=== PATIENT | male | born 2000 | race Caucasian/White ===

== ENCOUNTER 2021-09-17 21:48 | Emergency (ER) | payer OTHER ==
[~2021-09-17] VITALS: Ht 172.7 cm; Wt 74.4 kg
[2021-09-17 21:54] VITALS: BP 111/72
--- NOTE | 2021-09-17 22:00 | NUR ---
Patient ambulated to bed 12. Addendum: 09/17/21 at 2201 by [email or web address] Patient ambulated to bed 11.
--- NOTE | 2021-09-17 22:12 | NUR ---
Dr. Rojas examining patient.
[2021-09-17] MEDS ORDERED: KETOROLAC 30 MG/ML VIAL IM ONE (22:15)
[2021-09-17] MEDS ORDERED: ONDANSETRON 4 MG ODT PO ONE (22:15)
--- NOTE | 2021-09-17 22:15 | NUR ---
RECEIVED IN BED 11 WITH C/O N/V X TODAY.C/O PMHx: DENIES
--- NOTE | 2021-09-18 | NUR ---
RESTING QUIETLY WITHOUT COMPLAINTS
[2021-09-18 00:31] VITALS: BP 92/46
[2021-09-18] MEDS ORDERED: NACL 0.9% 1,000 ML IV ONE (00:55)
[2021-09-18 01:07] LABS: BASOPHILS % (AUTO) 0.2 % (0.0-2.0); HEMATOCRIT 38.3 % (36-52); HEMOGLOBIN 12.8 g/dL (12.0-18.0); LYMPHOCYTES # (AUTO) 0.3 K/uL (2.0-11.5); LYMPHOCYTES % (AUTO) 2.2 % (20.5-51.1); MEAN CORPUSCULAR HEMOGLOBIN 30 pg (27-31); MEAN CORPUSCULAR HGB CONC 33 g/dL (33-37); MEAN CORPUSCULAR VOLUME 89.1 fL (80-94); MONOCYTES # (AUTO) 0.8 K/uL (0.8-1.0); MONOCYTES % (AUTO) 5.9 % (1.7-9.3); NEUTROPHILS # (AUTO) 12.9 K/uL (1.8-7.7); NEUTROPHILS % (AUTO) 91.7 % (42.2-75.2); PLATELET COUNT (AUTO) 202 K/uL (140-450); RED CELL DISTRIBUTION WIDTH 13.3 % (11.6-13.7); WHITE BLOOD COUNT (AUTO) 14.1 K/uL (4.5-11.0)
[2021-09-18 01:26] LABS: ALBUMIN 3.5 g/dL (3.4-5.0); CARBON DIOXIDE 25.4 mmol/L (21-32); CREATININE 1.1 mg/dL (0.6-1.3); POTASSIUM 3.4 mmol/L (3.5-5.1); TOTAL BILIRUBIN 0.7 mg/dL (0.0-1.0)
[2021-09-18] MEDS ORDERED: ONDA-188 PO (02:00)
[2021-09-18] MEDS ORDERED: ACET-10509 PO (02:00)
--- NOTE | 2021-09-18 02:15 | NUR ---
Patient discharged with v/s stable. Written and verbal after care instructions given and explained. Patient alert, oriented and verbalized understanding of instructions. Ambulatory with steady gait. All questions addressed prior to discharge. ID band removed. Patient advised to follow up with PMD. Rx of TYLENOL AND ZOFRAN given. Patient educated on indication of medication including possible reaction and side effects. Opportunity to ask questions provided and answered.
== END 2021-09-18 02:15 | disposition home or self-care (01) ==
LOC: MED 21:48
DX: B34.9 Viral infection, unspecified (principal); R11.2 Nausea with vomiting, unspecified; M79.18 Myalgia, other site; Z98.890 Other specified postprocedural states; Z79.899 Other long term (current) drug therapy
CPT/HCPCS: 36415; 80053; 85025; 87804; 96360; 96372; 99283; J1885; J7030; Q0162